=== PATIENT | female | born 2005 | race African-American/Black ===

== ENCOUNTER 2025-01-12 11:36 | Emergency (ER) | payer MEDICAID ==
[~2025-01-12] VITALS: Ht 165.1 cm; Wt 81.6 kg
[2025-01-12 12:36] LABS: *BLOOD, URINE NEGATIVE (NEGATIVE); *CLARITY,URINE CLEAR (CLEAR); *COLOR,URINE YELLOW (YELLOW); *KETONES,URINE 1+ (NEGATIVE); *PROTEIN,URINE 1+ (NEGATIVE); *UROBILINOGEN,URINE 0.2 E.U./dl (NORMAL); LEUKOCYTE ESTERASE ,URINE 1+ (NEGATIVE); NITRITE, URINE NEGATIVE (NEGATIVE); PH,URINE 5.5 (5.0-8.0); UGLUCOSE NEGATIVE (NEGATIVE)
[2025-01-12 12:41] LABS: *BILIRUBIN,URIN 1+ (NEGATIVE)
[2025-01-12 12:43] LABS: *URINE HCG, QUAL NEGATIVE (NEGATIVE)
[2025-01-12 12:56] LABS: BASOPHILS # (AUTO) 0.1 K/UL (0.0-0.2); BASOPHILS % (AUTO) 0.5 % (0.0-2.0); EOSINOPHILS # (AUTO) 0.1 K/uL (0.0-0.7); EOSINOPHILS % (AUTO) 0.8 % (0.0-7.0); HEMATOCRIT 37.7 % (31.2-41.9); LYMPHOCYTES # (AUTO) 1.7 K/uL (0.8-4.8); LYMPHOCYTES % (AUTO) 16.6 % (20.5-74.5); MEAN CORPUSCULAR HEMOGLOBIN 24.5 uug (24.7-32.8); MEAN CORPUSCULAR HGB CONC 32 g/dL (32.3-35.6); MEAN CORPUSCULAR VOLUME 77.3 fL (75.5-95.3); MONOCYTES # (AUTO) 0.5 K/uL (0.1-1.30); MONOCYTES % (AUTO) 4.6 % (0-11); NEUTROPHILS # (AUTO) 7.7 K/uL (1.8-8.9); NEUTROPHILS % (AUTO) 77.5 % (31.5-64.5); PLATELET COUNT (AUTO) 373 K/uL (179-408); RED BLOOD CELL COUNT(AUTO) 4.88 MIL/uL (3.63-4.92); RED CELL DISTRIBUTION WIDTH 16.4 % (12.3-17.7)
[2025-01-12 13:15] LABS: ALANINE AMINOTRANSFERASE 13 U/L (14-59); ALBUMIN 4.1 g/dL (3.4-5.0); ALKALINE PHOSPHATASE 64 U/L (50-136); ASPARTATE AMINOTRANSFERASE 13 U/L (15-37); BILIRUBIN,DIRECT < 0.1 mg/dL (0.0-0.2); BILIRUBIN,TOTAL 0.4 mg/dL (0.2-1.0); CARBON DIOXIDE 29 mmol/L (21-32); CHLORIDE 100 mmol/L (98-107); CREATININE 0.8 mg/dL (0.6-1.3); GLUCOSE 90 mg/dL (74-106); LIPASE 18 U/L (16-77); POTASSIUM 3.5 mmol/L (3.5-5.1); SODIUM SERUM 140 mmol/L (136-145); TOTAL PROTEIN, SERUM 9.4 g/dL (6.4-8.2); UREA NITROGEN, BLOOD 8 mg/dL (7-18)
[2025-01-12 13:17] LABS: DIFFERENTIAL COMMENT 1
[2025-01-12 13:25] LABS: BACTERIA,URINE MODERATE /HPF (NONE SEEN); SQUAMOUS EPITHELIAL CELL,UR MODERATE /HPF (NONE SEEN); WBC,URINE 20-50 /HPF (0-3)
[2025-01-12] MEDS ORDERED: AMOX-430 PO (14:31)
[2025-01-12] MEDS ORDERED: IBUP-1957 PO (14:31)
[2025-01-12 14:48] VITALS: BP 135/94; TEMP 98; O2SAT 99
== END 2025-01-12 14:49 | disposition home or self-care (01) ==
LOC: ER 11:36
DX: R19.7 Diarrhea, unspecified (principal); R10.13 Epigastric pain; R11.0 Nausea; Z91.048 Other nonmedicinal substance allergy status
CPT/HCPCS: 36415; 83690; 84484; 84703; 85025; 85730; 87086; A4606; A4663